=== PATIENT | female | born 1960 | race Two or more races ===

== ENCOUNTER → 2023-09-01 | Outpatient (CLI) | payer OTHER, SELFPAY ==
[2023-09-04 11:07] LABS: G6PD Quant Test 237 (127-427); Red Blood Cell Count Test/G6PD 4.14 x10E6/uL (3.77-5.28)
== END | disposition home or self-care (01) ==
LOC: LABSPEC 12:30
PROVIDERS: PCP Nurse Practitioner Family; Referring Provider Nurse Practitioner Family; Visit Provider Nurse Practitioner Family
DX: A44.9 Bartonellosis, unspecified (principal); G47.00 Insomnia, unspecified; D64.9 Anemia, unspecified
CPT/HCPCS: 82955